=== PATIENT | female | born 1980 | race Two or more races ===

== ENCOUNTER 2021-08-20 01:30 | Emergency (ER) | payer SELFPAY ==
[~2021-08-20] VITALS: Ht 167.6 cm; Wt 102.1 kg
[2021-08-20 01:40] VITALS: BP 121/60
--- NOTE | 2021-08-20 01:54 | NUR ---
Patient discharged to home in stable condition. Written and verbal after care instructions given. Patient verbalizes understanding of instruction.
== END 2021-08-20 02:00 | disposition home or self-care (01) ==
LOC: ER 01:32
DX: Z00.8 Encounter for other general examination (principal); Z71.1 Person with feared health complaint in whom no diagnosis is made; Z59.00 Homelessness unspecified